=== PATIENT | female | born 1985 | race American Indian/Alaskan Native ===

== ENCOUNTER 2016-07-16 17:49 | Emergency (ER) | payer MEDICARE, MEDICAID ==
[2016-07-16] MEDS ORDERED: Lidocaine 5% Patch TD STA (18:22)
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
[2016-07-16] MEDS ORDERED: Lidocaine 5% Patch TD ONE (18:27)
[2016-07-16] MEDS ORDERED: Morphine 4 MG/ML VIAL ONE (19:18)
[2016-07-16 19:24] VITALS: RESP 18
[2016-07-16 20:16] VITALS: BP 106/68; PULSE 71; TEMP 98.1
[2016-07-16 20:20] VITALS: O2SAT 97
== END 2016-07-16 20:16 | disposition home or self-care (01) ==
LOC: C.ER 17:49
DX: M54.16 Radiculopathy, lumbar region (principal)
CPT/HCPCS: 96372; 99284; J1885; J2270